=== PATIENT | female | born 1985 | race Caucasian/White ===

== ENCOUNTER 2021-02-22 14:10 | Inpatient (IN) ==
[2021-02-22] MEDS ORDERED: 0.9 % Sodium Chloride 1,000 ML IVC ONE (14:38)
[2021-02-22] MEDS ORDERED: *HR* LORazepam 2 MG/ML VIAL IVP ONE ×2 (16:33→23:20)
[2021-02-22] MEDS ORDERED: Naloxone 0.4 MG/ML INJ IVP PRN ×2 (17:22→17:24)
[2021-02-22] MEDS ORDERED: Melatonin 3 MG TABLET PO PRN (17:24)
[2021-02-22] MEDS ORDERED: Ondansetron 4 MG/2 ML VIAL IVP PRN (17:24)
[2021-02-22] MEDS: Ringers Solution, Lactated 1,000 ML IVC SCH ×2 (18:35→20:48)
[2021-02-22] MEDS ORDERED: cloNIDine HCL 0.1 MG TABLET PO PRN (18:56)
[2021-02-22] MEDS ORDERED: Dextrose Gel 15 GM/37.5 ML TUBE PO PRN ×2 (19:00)
[2021-02-22] MEDS ORDERED: *HR* Dextrose 50 % in Water (Vial) 50 ML VIAL IVP PRN (19:00)
[2021-02-22] MEDS ORDERED: D5% in Water 1,000 ML IVC PRN (19:00)
[2021-02-22] MEDS: cefTRIAXone 1,000 MG in 0.9 % Sodium Chloride Mini Bag 100 ML IVPB SCH (20:48)
[2021-02-22] MEDS: BuPROPion SR (12 HR) 150 MG TABLET PO SCH (20:49)
[2021-02-22 21:13] LABS: Estimated Average Glucose 117 mg/dl; Hemoglobin A1C 5.7 %
[2021-02-22] MEDS: Acetaminophen 325 MG TABLET PO PRN (21:14)
[2021-02-22] MEDS: hydrOXYzine pamoate 25 MG CAPSULE PO PRN (21:14)
[2021-02-22] MEDS ORDERED: *HR* LORazepam 2 MG/ML VIAL ONE (23:18)
[2021-02-22] MEDS: QUEtiapine Fumarate 25 MG TABLET PO SCH (23:50)
[2021-02-23] MEDS: *HR* Heparin 5,000 UNIT/ML VIAL SQ SCH ×2 (03:21→16:07)
[2021-02-23 08:11] LABS: Basophils % 0.5 %; Eosinophils # 0.2 K/mcL (0.0-0.6); Eosinophils % 2.7 %; Hematocrit 35.9 % (35.3-44.9); Hemoglobin 11.2 g/dL (11.5-15.4); Immature Granulocytes % 0.6 % (0-4); Lymphocytes # 3.6 K/mcL (0.6-4.6); Mean Corpuscular HGB Conc 31.2 g/dL (31.6-35.5); Mean Corpuscular Volume 83.3 fL (83.0-100.0); Mean Platelet Volume 12.9 fL (9.4-12.4); Monocytes # 0.8 K/mcL (0.0-1.3); Monocytes % 9.7 %; Neutrophils # 3.8 K/mcL (1.6-8.9); Platelet Count 193 K/mcL (140-400); Red Blood Count 4.31 M/mcL (3.82-4.97); Red Cell Distribution Width 15.9 % (11.5-14.5); Segmented Neutrophils % 44.5 %; White Blood Count 8.6 K/mcL (4.3-11.1)
[2021-02-23 08:18] LABS: INR 1.2; Prothrombin Time 13.8 Seconds (9.4-12.1)
[2021-02-23 08:30] LABS: Alanine Aminotransferase 24 Units/L (7-52); Albumin/Globulin Ratio 1.3 (1.1-2.2); Alkaline Phosphatase 81 Units/L (34-104); Aspartate Amino Transferase 47 Units/L (13-39); BUN/Creatinine Ratio 17 (6-26); Bilirubin,Total 0.6 mg/dL (0.3-1.0); Blood Urea Nitrogen 20 mg/dL (6-20); Carbon Dioxide 23 mEq/L (23-29); Chloride 108 mEq/L (98-107); Globulin 3.1 g/dL (2.4-3.5); Glucose 88 mg/dL (70-105); Magnesium 2.1 mg/dL (1.6-2.6); Osmolality,Calculated 286 (280-300); Phosphorous 4.5 mg/dL (2.7-4.5); Sodium 137 mEq/L (136-145); Total Protein 7.1 g/dL (6.4-8.9); eGFR For African Americans > 60 (> 60); eGFR For Non-African Americans 53 (> 60)
[2021-02-23 08:41] LABS: Creatine Kinase 760 Units/L (30-223)
[2021-02-23] MEDS: BuPROPion SR (12 HR) 150 MG TABLET PO SCH ×2 (08:47→21:00)
[2021-02-23] MEDS: Venlafaxine XR (24 HR) 75 MG CAP.ER.24H PO SCH (08:48)
[2021-02-23] MEDS ORDERED: Venlafaxine XR (24 HR) 150 MG CAP.ER.24H PO SCH (09:00)
[2021-02-23] MEDS: cefTRIAXone 1,000 MG in 0.9 % Sodium Chloride Mini Bag 100 ML IVPB SCH (09:45)
[2021-02-23] MEDS ORDERED: Buprenorphine Hcl/Naloxone Hcl 8-2 MG SL SCH (14:00)
[2021-02-23] MEDS ORDERED: *HR* Buprenorphine HCl 8 MG TAB.SUBL SL SCH (14:15)
[2021-02-23] MEDS: *HR* Buprenorphine HCl 8 MG TAB.SUBL SL SCH (14:42)
[2021-02-23] MEDS: Ringers Solution, Lactated 1,000 ML IVC SCH (18:16)
[2021-02-23] MEDS: QUEtiapine Fumarate 25 MG TABLET PO SCH (21:00)
[2021-02-24 03:05] LABS: Red Blood Count 3.97 M/mcL (3.82-4.97); Red Cell Distribution Width 15.9 % (11.5-14.5)
[2021-02-24 03:06] LABS: Hematocrit 33.8 % (35.3-44.9); Hemoglobin 10.3 g/dL (11.5-15.4); Mean Corpuscular HGB Conc 30.5 g/dL (31.6-35.5); Mean Corpuscular Hemoglobin 25.9 pg (28.0-33.3); Mean Corpuscular Volume 85.1 fL (83.0-100.0); Mean Platelet Volume 12.9 fL (9.4-12.4)
[2021-02-24 03:23] LABS: BUN/Creatinine Ratio 22 (6-26); Blood Urea Nitrogen 21 mg/dL (6-20); Calcium 8.6 mg/dL (8.6-10.3); Carbon Dioxide 23 mEq/L (23-29); Chloride 107 mEq/L (98-107); Creatine Kinase 351 Units/L (30-223); Glucose 101 mg/dL (70-105); Magnesium 1.9 mg/dL (1.6-2.6); Osmolality,Calculated 285 (280-300); Phosphorous 4.3 mg/dL (2.7-4.5); Potassium 4.6 mEq/L (3.5-5.1); Sodium 136 mEq/L (136-145); eGFR For African Americans > 60 (> 60); eGFR For Non-African Americans > 60 (> 60)
[2021-02-24] MEDS: Ringers Solution, Lactated 1,000 ML IVC SCH (04:04)
[2021-02-24] MEDS: *HR* Heparin 5,000 UNIT/ML VIAL SQ SCH ×3 (05:31→18:56)
[2021-02-24] MEDS: cefTRIAXone 1,000 MG in 0.9 % Sodium Chloride Mini Bag 100 ML IVPB SCH (08:17)
[2021-02-24] MEDS: *HR* Buprenorphine HCl 8 MG TAB.SUBL SL SCH (08:17)
[2021-02-24] MEDS: Venlafaxine XR (24 HR) 75 MG CAP.ER.24H PO SCH (08:17)
[2021-02-24] MEDS: BuPROPion SR (12 HR) 150 MG TABLET PO SCH ×2 (08:18→20:53)
[2021-02-24] MEDS: Gabapentin 400 MG CAPSULE PO SCH ×2 (13:19→20:53)
[2021-02-24] MEDS: hydrOXYzine pamoate 25 MG CAPSULE PO PRN (13:19)
[2021-02-24] MEDS: Acetaminophen 325 MG TABLET PO PRN (13:19)
[2021-02-25] MEDS: *HR* Heparin 5,000 UNIT/ML VIAL SQ SCH ×2 (05:45→16:47)
[2021-02-25 06:08] LABS: Hemoglobin 10.7 g/dL (11.5-15.4)
[2021-02-25 06:10] LABS: Hematocrit 33.8 % (35.3-44.9); Immature Platelets 9.7 % (1.1-6.1); Mean Corpuscular HGB Conc 31.7 g/dL (31.6-35.5); Mean Corpuscular Volume 85.1 fL (83.0-100.0); Mean Platelet Volume 13.2 fL (9.4-12.4); Red Blood Count 3.97 M/mcL (3.82-4.97); Red Cell Distribution Width 15.9 % (11.5-14.5); White Blood Count 6.7 K/mcL (4.3-11.1)
[2021-02-25 06:28] LABS: BUN/Creatinine Ratio 21 (6-26); Blood Urea Nitrogen 19 mg/dL (6-20); Calcium 8.9 mg/dL (8.6-10.3); Carbon Dioxide 25 mEq/L (23-29); Chloride 107 mEq/L (98-107); Glucose 96 mg/dL (70-105); Magnesium 1.9 mg/dL (1.6-2.6); Osmolality,Calculated 288 (280-300); Phosphorous 4.5 mg/dL (2.7-4.5); Potassium 4.2 mEq/L (3.5-5.1); Sodium 138 mEq/L (136-145); eGFR For African Americans > 60 (> 60); eGFR For Non-African Americans > 60 (> 60)
[2021-02-25 06:48] LABS: % Iron Saturation 6 % (15-50); Iron 22 mcg/dL (50-170); Transferrin 270 mg/dL (203-362)
[2021-02-25 06:49] LABS: Ferritin 36 ng/mL (10-120)
[2021-02-25 06:53] LABS: Folate 8.8 ng/mL (3.0-16.0)
[2021-02-25] MEDS ORDERED: Iron Sucrose Complex 400 MG in 0.9 % Sodium Chloride 250 ML IVPB ONE (07:57)
[2021-02-25] MEDS: BuPROPion SR (12 HR) 150 MG TABLET PO SCH ×2 (08:12→21:02)
[2021-02-25] MEDS: *HR* Buprenorphine HCl 8 MG TAB.SUBL SL SCH (08:12)
[2021-02-25] MEDS: Venlafaxine XR (24 HR) 75 MG CAP.ER.24H PO SCH (08:12)
[2021-02-25] MEDS: Gabapentin 400 MG CAPSULE PO SCH ×3 (08:12→21:02)
[2021-02-25] MEDS: cefTRIAXone 1,000 MG in 0.9 % Sodium Chloride Mini Bag 100 ML IVPB SCH (08:13)
[2021-02-25 17:58] LABS: Adenovirus Not Detected (Not Detect); Bordetella Pertussis Not Detected (Not Detect); Chlamydophila pneumoniae Not Detected (Not Detect); Coronavirus 229E Not Detected (Not Detect); Coronavirus HKU1 Not Detected (Not Detect); Coronavirus NL63 Not Detected (Not Detect); Coronavirus OC43 Not Detected (Not Detect); Human Metapneumovirus Not Detected (Not Detect); Human Rhinovirus/Enterovirus Not Detected (Not Detect); Influenza A Subtype 2009 H1 Not Detected (Not Detect); Influenza B Not Detected (Not Detect); Mycoplasma pneumoniae Not Detected (Not Detect); Parainfluenza Virus 1 Not Detected (Not Detect); Parainfluenza Virus 2 Not Detected (Not Detect); Parainfluenza Virus 3 Not Detected (Not Detect); Parainfluenza Virus 4 Not Detected (Not Detect); Respiratory Syncytial Virus Not Detected (Not Detect); SARS-CoV-2 Not Detected (Not Detect)
[2021-02-26 03:13] VITALS: BP 125/76
== END 2021-02-26 04:25 | disposition other institution (70) | DRG 812 ==
LOC: 3BNU 14:10 → EMEROOARM 14:10 → SUATTDRO 16:58 → 3BNU 17:00
PROVIDERS: ADMIT Internal Medicine; ATTEND Internal Medicine